=== PATIENT | male | born 1980 | race Caucasian/White ===

== ENCOUNTER → 2017-01-01 | Outpatient (CLI) | payer BC ==
[~2017-01-01] MED LIST: CALC0.25 PO; CALC0.5C PO; CALC0.5C2; LEVO150T9 PO; MULT-360 PO; OXYC-57 PO; VTMD PO
--- NOTE | 2017-01-01 16:37 | DIAGNOSTIC IMAGING REPORT ---
ORBIT RADIOGRAPHS 3 VIEWS HISTORY: pre-MRI screening. COMPARISON: None. FINDINGS: There are no radiopaque foreign bodies identified within the orbits. IMPRESSION: No radiopaque foreign bodies identified within the orbits. Electronically signed by: Eamon Velez M.D. 01/01/2017 4:36 PM Dictated Date/Time: 01/01/2017 4:35 PM
--- NOTE | 2017-01-01 17:22 | DIAGNOSTIC IMAGING REPORT ---
MRI OF THE LEFT KNEE CLINICAL HISTORY: Left knee pain. COMPARISON STUDY: Radiographs of left knee dated 12/28/2016. TECHNIQUE: MRI of the left knee was performed utilizing proton density, T1, and T2-weighted sequences in the axial, sagittal, coronal planes. IV contrast was not administered for this examination. FINDINGS: Menisci: No meniscal tear is identified. Increased signal within the posterior horn medial meniscus does not reach the articular surface and likely represents mucoid degeneration. Ligaments: Findings are consistent with rupture of the anterior cruciate ligament. The posterior cruciate ligament is intact. The medial and lateral collateral ligaments are within normal limits. Extensor mechanism: The extensor mechanism is intact. Hoffa's fat pad is normal in appearance. Articular cartilage and bone: The articular cartilage is intact and well maintained all 3 compartments. Normal marrow signal is preserved of the visualized bony structures. Joint effusion: There is a small joint effusion. Soft tissues: There is mild prepatellar soft tissue edema. The musculature surrounding the knee joint is normal in bulk and signal intensity. IMPRESSION: 1. Findings are consistent with rupture of the anterior cruciate ligament. 2. No meniscal tear is seen. 3. The posterior cruciate ligament and the collateral ligaments appear preserved. 4. There is a small joint effusion. No bony contusion is identified. Electronically signed by: Bhavin Vaughn M.D. 01/01/2017 5:21 PM Dictated Date/Time: 01/01/2017 5:17 PM
== END | disposition home or self-care (01) ==
LOC: C.MRIBC 16:14
PROVIDERS: ATTEND Orthopaedic Surgery
DX: M25.562 Pain in left knee (principal)

== ENCOUNTER → 2017-07-10 | Day surgery (SDC) | payer BC ==
[2017-06-14 14:58] VITALS: Ht 180.3 cm; Wt 88.6 kg
[~2017-07-10] VITALS: Ht 180.3 cm; Wt 88.6 kg
[~2017-07-10] MED LIST changes: +ATROPINE SULFATE 0.1 MG/ML 5ML SYR IV PRN; +BUPIVACAINE/EPINEPHRINE 0.25% 1:200,000 30 ML VIAL ONE; -CALC0.5C PO; -CALC0.5C2; +CEFAZOLIN 2000MG IV PUSH 10 ML IV SCH; +CEFAZOLIN SOD 1 GM VIAL ONE; +CEFAZOLIN SOD 1000MG/5 ML IV PUSH IV ONE; +DEXAMETHASONE SOD INJ 4 MG/ML VIAL ONE; +EpHEDrine SULFATE INJ 50 MG/ML AMP IV PRN; +EpINEphrine HCL INJ 1 MG/ML 5ML SYRINGE ONE; +EpINEphrine INJ 1MG/ML AMP 1 MG/ML AMP ONE; +FENTANYL CITRATE INJ 50 MCG/1 ML 2 ML VIAL ONE; +FLUMAZENIL 0.1 MG/1 ML 10 ML VIAL IV PRN; +HYDROmorphone INJ 1 MG/ML SYR IV PRN; +HYDROmorphone INJ 1 MG/ML SYR ONE; +KETO10TA PO; +KETOROLAC TROMETHAMINE 30 MG/ML VIAL ONE; +LABETALOL HCL IV 5 MG/ML 20ML IV PRN; +LACTATED RINGER'S 1000ML 1,000 ML IV SCH; +LIDOCAINE HCL 2% 2 ML VIAL (20MG/ML) ONE; +MIDAZOLAM HCL 1 MG/ML 2ML VIAL ONE; +NALOXONE HCL 0.4 MG/1 ML VIAL/CARP IV PRN; +ONDANSETRON INJ 2 MG/ML 2 ML VIAL IV PRN; +ONDANSETRON INJ 2 MG/ML 2 ML VIAL ONE; +OXYCODONE/ACETAMINOPHEN 5-325 TAB PO PRN; +PROMETHAZINE HCL INJ 12.5 MG in SODIUM CHLORIDE 0.9% 50ML 50 ML IV PRN; +PROMETHAZINE HCL INJ 25 MG/ML 1 ML VIAL ONE; +PROPOFOL IV EMULSION 10 MG/ML 20 ML VIAL IV ONE; +ROPIVACAINE 0.5% 5 MG/ML 30 ML VIAL ONE; +SODIUM CHLORIDE 0.9% 1000ML 1,000 ML IV SCH; +SODIUM CHLORIDE 0.9% INJ 10 ML VIAL ONE; -VTMD PO
--- NOTE | 2017-07-10 06:46 | History & Physical Bridge - SC ---
H&P Re-Evaluation Bridge Note: I have examined the patient, reviewed the History & Physical and in the interval since the performance of the History & Physical I have noted the following changes of clinical significance: No changes noted
--- NOTE | 2017-07-10 09:02 | [facility] Post Operative Brief Note ---
Immediate Operative Summary Operative Date Jul 10, 2017. Pre-Operative Diagnosis Left knee anterior cruciate ligament tear Post-Operative Diagnosis Same as preop + Lateral Meniscus Tear Procedure(s) Performed Left Knee Arthroscopic Anterior Cruciate Ligament Reconstruction, Bone Patella Bone Autograft, Partial Lateral Meniscectomy Surgeon Dr. Llamas Cribbing Setter Surgeon(s) Sebastian Maxwell PA-C Estimated Blood Loss Minimal Findings ACL Tear + Lateral Meniscus Tear Specimens None Anesthesia General Complication(s) None Disposition Recovery Room / PACU
--- NOTE | 2017-07-10 09:05 | Discharge Instructions-SurgCtr ---
Discharge Instructions Date of Service Jul 10, 2017. Visit Reason for Visit: Left Acl Rupture Discharge Discharge Diagnosis / Problem: LEFT ACL TEAR, LATERAL MENISCUS TEAR Discharge Goals Goal(s): Decrease discomfort, Improve function, Therapeutic intervention Medications Stopped Medications Name(s): No blood thinners Activity Recommendations Activity Limitations: per Instructions/Follow-up section Weightbearing Status: Left weightbearing (as tolerated WITH BRACE ) Anesthesia . Post Anesthesia Instructions: If you have had General Anesthesia or IV Sedation: * Do not drive today. * Resume driving when surgeon permits. * Do not make important decisions or sign legal documents today. * Call surgeon for: 1. Temperature elevations greater than 101 degrees F. 2. Uncontrollable pain. 3. Excessive bleeding. 4. Persistent nausea and vomiting. 5. Medication intolerance (nausea, vomiting or rash). * For nausea and vomiting use only clear liquids such as: tea, soda, bouillon until nausea subsides, then gradually increase diet as tolerated. * If you have any concerns or questions, call your surgeon's office. If physician is unavailable and it is an emergency, call 911 or go to the nearest emergency room. . Instructions / Follow-Up Instructions / Follow-Up MEDICATIONS: * Resume previous medications unless instructed otherwise by your surgeon. * Always take pain medication on a full stomach or with food to avoid upset stomach. * Do not drink alcohol or drive while taking narcotics. * Ibuprofen or Tylenol may be taken if narcotic not needed. No ibuprofen while taking toradol SPECIAL CARE INSTRUCTIONS: __ None _x_ Keep extremity elevated and iced x 48 hours; apply ice 20-30 minutes 8-10 times/day. May remove at night. _x_ Crutches __ May discard when able _x_ Brace (remove for therapy exercises) __ 24 hrs/day __ Remove at night _x_ Dressing __ Maintain until seen in office, may shower with plastic over site _x_ Remove dressings in 24-48 hours and then may shower _x_ Cover incisions with band-aids after showering _x_ Do not remove steri-strips Call physician if chills or temperature rises above 102 degrees or pain unrelieved by prescribed pain medications. Office [phone] follow up in 2 weeks Diet Recommendations Home Diet: resume previous diet Procedures Procedures Performed: Left Knee Arthroscopic Anterior Cruciate Ligament Reconstruction, Bone Patella Bone Autograft, Partial Lateral Meniscectomy Pending Studies Studies pending at discharge: no Medical Emergencies . Who to Call and When: Medical Emergencies: If at any time you feel your situation is an emergency, please call 911 immediately. . Non-Emergent Contact Non-Emergency issues call your: Surgeon . . "Provider Documentation" section prepared by Pasquale Maxwell. .
--- NOTE | 2017-07-10 09:36 | OPERATIVE REPORT ---
DATE OF OPERATION: 07/10/2017 SURGEON: Mike Llamas MD SOCK IRONER: ERICH Delaney PREOPERATIVE DIAGNOSIS: Left knee anterior cruciate ligament tear. POSTOPERATIVE DIAGNOSES: 1. Left anterior cruciate ligament tear. 2. Left knee posterior horn lateral meniscus tear. PROCEDURE PERFORMED: 1. Left knee exam under anesthesia. 2. Left knee diagnostic arthroscopy. 3. Left knee arthroscopic anterior cruciate ligament reconstruction with 10-mm bone-patella tendon-bone autograft. 4. Left knee partial lateral meniscectomy. COMPLICATIONS: None. ESTIMATED BLOOD LOSS: Minimal. TOURNIQUET TIME: 79 minutes at 300 mmHg. ANESTHESIA: General with adductor canal block. DRAINS: None. SPECIMENS: None. 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 He had persistent instability in his knee since then. MRI and exam were consistent with an ACL tear. He elected to proceed with surgical treatment. OPERATIVE FINDINGS: Examination under anesthesia of left knee revealed no significant effusion. Range of motion was full in extension to 135 degrees of flexion. He had positive Sandrita, grade 2 pivot, negative anterior drawer, negative posterior drawer and no varus or valgus instability. Lara was negative for mechanical symptoms. There is no posterolateral rotatory instability. ARTHROSCOPIC FINDINGS: Arthroscopic findings revealed no significant knee effusion. The undersurface of patella revealed some very mild wear. The trochlea was normal. In the intercondylar notch, the ACL was completely torn and scarred down to the PCL. There was an empty lateral wall. The PCL was intact. In the medial compartment, the articular surface of the meniscus was normal. In the lateral compartment, the articular surface was well preserved. There was a posterior horn lateral meniscus tear at the root of the meniscus. OPERATIVE PROCEDURE: The patient was taken to the operating room, identified and placed on the operating table in the supine position. All contact areas were appropriately padded. IV antibiotics were provided by anesthesia team. A general anesthetic was implemented by anesthesia team. An adductor canal block had been done in the holding area. A left thigh tourniquet was then placed. The left knee was then examined under anesthesia with findings as described above. Left leg was then prepped and draped in the usual sterile fashion. The left leg was elevated and exsanguinated with Esmarch and tourniquet was placed at 300 mmHg. Attention was first drawn toward harvesting the graft. A longitudinal incision was made over the anteromedial border of the patella tendon. Sharp dissection was carried through the subcutaneous tissue down to the extensor mechanism. The subcutaneous tissues were mobilized circumferentially. An incision in the peritenon was then made directly over the patella tendon. The peritenon was fairly scarred to the patella tendon. We dissected this off. The patella tendon width measured 32 mm. A 10-mm bone-patella tendon-bone autograft was then harvested with about a 22-mm plug from the tibia and a 23-mm plug from the patella. This was taken to the back table and tailored to fit through 10-mm tunnels on the patellar side and 9-mm tunnel and the tibial side. We placed one #5 suture through the tibial bone block to place in the femur and 3 through the patellar block to place in the tibia. The graft was then covered and protected until ready for implantation. During graft preparation, a 20 mm x 8 mm bone plug was harvested from the proximal tibia. The patella tendon defect was closed with 0 Vicryl suture in a [id number] fashion. The bone plug was then placed in the patella defect. The peritenon was then closed with 0 Vicryl suture in running fashion. A subperiosteal flap was elevated over the anteromedial aspect of the tibia. Attention was then drawn to knee arthroscopy. Routine left knee arthroscopy was then performed through typical anteromedial and anterolateral portals. A superolateral outflow portal was established for outflow. The remnant of the ACL was excised. A notchplasty was performed. Attention was then drawn to the meniscus. With the use of motorized and hand controlled instruments, the posterior horn flap tear of the lateral meniscus was removed back to stable tissue. The remainder of the meniscus was stable. Attention was then drawn to the ACL reconstruction. The graft length measured 41 mm in length. The tibial guide was set at 50 degrees and a guidewire was placed in the area of the proposed tibial tunnel. It was overdrilled with 10-mm solid reamer. Tunnel was cleaned of all soft tissue debris. A 7-mm over the top guide was then placed in the anterior medial portal. The knee was maximally flexed. A guidewire was placed in the area of the proposed femoral tunnel. This was overdrilled with a 9-mm [employer] drill bit. The tunnel was then notched. The tunnel was cleaned of all debris. A 2-pin passer was then used to pass the graft. The graft was passed through the tibial tunnel up into the femoral tunnel. It was fixed with a 7 x 20 round headed interference screw. The knee was cycled several times. There was no impingement. The knee was brought out into full extension and it tensioned over a med/surg tibial plate/screw/post device. The knee was examined. There was no Sandrita and no pivot. The scope was placed back in the knee and the graft was appropriately tensioned in flexion and extension. The arthroscopic instruments were placed out into the knee joint. All extraneous debris was removed. The arthroscopic instruments were then removed from the knee joint. The anteromedial portal was closed with 0 Vicryl suture in a [id number] fashion. The anterolateral portal was closed with 3-0 Prolene suture in a simple fashion. The periosteal flap over the tibia was closed with 0 Vicryl suture. I did bone graft this tunnel with remaining bone graft. The knee was then injected with 30 mL of 0.5% ropivacaine with epinephrine and 30 mg of Toradol. The tourniquet was then let down for a tourniquet time of 79 minutes. The wound was once again irrigated. The subcutaneous tissues were then closed with 2-0 Dexon suture in buried interrupted fashion. Skin was closed with 3-0 Prolene suture in a subcuticular fashion. The leg was then cleaned and dried and a sterile dressing of Xeroform, 4 x 4, sterile cast padding, Cabrera bandage, cold pack and a knee immobilizer were applied. The patient was then brought out of general anesthesia and transferred to the recovery room in stable condition. The patient tolerated the procedure well with no complications. All needle and sponge counts were correct at the end of the operation. I attest to the content of the Intraoperative Record and any orders documented therein. Any exceptions are noted below. MATTHEWD
--- NOTE | 2017-07-10 10:28 | Anesthesia Progress Nt - [facility] ---
Anesthesia Post Op Note Date & Time Jul 10, 2017 at 10:27 Vital Signs Pain Intensity: 0 Vital Signs Past 12 Hours Date Time Temp Pulse Resp B/P (MAP) Pulse Ox O2 Delivery O2 Flow Rate FiO2 07/10/17 09:46 137/93 07/10/17 09:43 83 8 98 07/10/17 09:43 89 8 07/10/17 09:42 69 4 99 07/10/17 09:42 68 4 07/10/17 09:41 126/84 07/10/17 09:37 79 5 07/10/17 09:37 72 5 93 07/10/17 09:36 138/109 07/10/17 09:36 36.8 83 12 146/95 95 Room Air 91 07/10/17 09:32 88 7 07/10/17 09:32 90 7 95 07/10/17 09:31 146/95 07/10/17 09:27 72 10 07/10/17 09:27 70 10 99 07/10/17 09:26 164/97 07/10/17 09:22 103 12 07/10/17 09:22 103 12 99 07/10/17 09:21 139/96 07/10/17 09:17 74 11 07/10/17 09:17 73 11 97 07/10/17 09:15 111/74 07/10/17 09:12 74 11 96 07/10/17 09:12 76 11 07/10/17 09:11 108/70 07/10/17 09:10 82 10 96 07/10/17 09:10 78 10 07/10/17 09:06 99/69 07/10/17 09:05 74 9 07/10/17 09:05 72 9 96 07/10/17 09:00 76 07/10/17 09:00 77 118/67 90 07/10/17 09:00 36.5 78 8 118/67 97 Diffusion Mask 10 07/10/17 06:58 70 07/10/17 06:58 70 13 99 07/10/17 06:56 156/104 07/10/17 06:53 76 07/10/17 06:53 75 21 100 07/10/17 06:52 73 17 99 07/10/17 06:52 75 07/10/17 06:52 73 17 99 07/10/17 06:52 75 07/10/17 06:51 153/101 07/10/17 06:51 153/101 07/10/17 06:47 73 0 07/10/17 06:47 73 0 07/10/17 06:23 36.6 73 16 135/98 (110) 36 Room Air Notes Mental Status: alert / awake / arousable, participated in evaluation Pt Amnestic to Procedure: Yes Nausea / Vomiting: adequately controlled Pain: adequately controlled Airway Patency, RR, SpO2: stable & adequate BP & HR: stable & adequate Hydration State: stable & adequate Anesthetic Complications: no major complications apparent
[2017-07-10 10:37] VITALS: TEMP 36.4
[2017-07-10 12:05] VITALS: BP 117/74; PULSE 61; O2SAT 96
== END | disposition home or self-care (01) ==
LOC: X.SURG 06:08
PROVIDERS: ATTEND Orthopaedic Surgery Sports Medicine
DX: S83.512A Sprain of anterior cruciate ligament of left knee, initial encounter (principal); S83.282A Other tear of lateral meniscus, current injury, left knee, initial encounter; X58.XXXA Exposure to other specified factors, initial encounter; Y93.72 Activity, wrestling; G47.33 Obstructive sleep apnea (adult) (pediatric); E03.9 Hypothyroidism, unspecified; J45.909 Unspecified asthma, uncomplicated; Z98.890 Other specified postprocedural states; Z85.850 Personal history of malignant neoplasm of thyroid; Z79.899 Other long term (current) drug therapy; Z90.89 Acquired absence of other organs